=== PATIENT | male | born 1990 | race Caucasian/White ===

== ENCOUNTER 2022-03-12 08:18 | Emergency (ER) | payer MEDICAID ==
[~2022-03-12] VITALS: Ht 172.7 cm; Wt 70.0 kg
--- NOTE | 2022-03-12 09:15 | NUR ---
US tech at bedside.
[2022-03-12] MEDS ORDERED: DOXY100C43 PO (09:29)
[2022-03-12] MEDS ORDERED: CefTRIAXone 500MG IM Kit w/LIDOcaine IM ONE ×2 (09:30→09:35)
[2022-03-12 09:44] LABS: CLARITY,URINE TURBID (Clear); COLOR,URINE YELLOW (Yellow); GLUCOSE, URINE NEGATIVE (Neg); KETONES,URINE TRACE mg/dl (Neg); LEUKOCYTE ESTERASE ,URINE NEGATIVE (Neg); NITRITES, URINE NEGATIVE (Neg); OCCULT BLOOD,URINE NEGATIVE (Neg); PROTEIN,URINE NEGATIVE (Neg); UROBILINOGEN,URINE 0.2 E.U/dL (0.2-1.0)
[2022-03-12 09:52] LABS: UA COLLECTION TYPE CLN CATCH MIDSTREAM
[2022-03-12 09:53] LABS: SQUAMOUS EPITHELIAL CELL,UR FEW /LPF (FEW)
[2022-03-12 09:54] LABS: AMORPHOUS URATES 3+; SPERM FEW /HPF (NEGATIVE)
[2022-03-12 09:55] LABS: BACTERIA,URINE 1+ /HPF (Neg); RBC,URINE 0-2 /HPF (0-2); WBC,URINE 0-4 /HPF (0-4)
[2022-03-12 10:46] VITALS: BP 132/77
== END 2022-03-12 10:49 | disposition home or self-care (01) ==
LOC: ER 08:19
DX: N43.3 Hydrocele, unspecified (principal); N45.1 Epididymitis; F15.90 Other stimulant use, unspecified, uncomplicated; Z72.89 Other problems related to lifestyle; Z79.2 Long term (current) use of antibiotics
CPT/HCPCS: 76870; 81001; 93976; 96372; 99284; J0696

== ENCOUNTER 2022-03-28 08:21 | Emergency (ER) | payer MEDICAID ==
[~2022-03-28] VITALS: Ht 180.3 cm; Wt 77.3 kg
[~2022-03-28 08:21] MED LIST: DOXY100C43 PO
[2022-03-28 09:07] VITALS: BP 106/78
[2022-03-28] MEDS ORDERED: LORazepam 1 MG tablet PO ONE (09:15)
[2022-03-28 09:30] LABS: BASOPHILS # (AUTO) 0.1 X10'3 (0-0.2); BASOPHILS % (AUTO) 0.8 % (0-1); EOSINOPHILS % (AUTO) 0.2 % (0-6); HEMATOCRIT 42.3 % (42.0-52.0); LYMPHOCYTES # (AUTO) 1.2 X10'3 (1.1-4.8); LYMPHOCYTES % (AUTO) 18.5 % (21-51); MEAN CORPUSCULAR HEMOGLOBIN 31.4 PG (27.0-31.0); MEAN CORPUSCULAR HGB CONC 33.2 g/dL (33.0-36.5); MEAN CORPUSCULAR VOLUME 94.6 FL (78-98); MEAN PLATELET VOLUME 9.3 FL (7.4-10.4); MONOCYTES # (AUTO) 0.4 X10'3 (0-0.9); MONOCYTES % (AUTO) 5.5 % (2-12); NEUTROPHILS # (AUTO) 5.1 X10'3 (1.8-7.7); PLATELET COUNT 254 X10'3 (140-440); RED BLOOD COUNT 4.47 X10'6 (4.70-6.10); RED CELL DISTRIBUTION WIDTH 12.9 % (11.5-14.5); WHITE BLOOD COUNT 6.7 X10'3 (4.5-11.0)
[2022-03-28 09:39] LABS: ALANINE AMINOTRANSFERASE 18 U/L (12-78); ALBUMIN 4.7 G/DL (3.4-5.0); ALBUMIN/GLOBULIN RATIO 1.3 (1.1-1.5); ALKALINE PHOSPHATASE 51 IU/L (46-116); ANION GAP 14 (8-16); ASPARTATE AMINO TRANSFERASE 20 U/L (10-37); BILIRUBIN,TOTAL 0.3 MG/DL (0.1-1.0); BLOOD UREA NITROGEN 21 MG/DL (7-18); BUN/CREATININE RATIO 17.8 (5.4-32.0); CALCIUM 9.3 MG/DL (8.5-10.1); CHLORIDE 100 MMOL/L (99-107); CREATININE 1.18 MG/DL (0.60-1.10); GLUCOSE 63 MG/DL (70-104); POTASSIUM 4.2 MMOL/L (3.5-5.1); SODIUM 137 MMOL/L (135-145); TOTAL CARBON DIOXIDE 23.3 MMOL/L (24-32); TOTAL PROTEIN 8.3 G/DL (6.4-8.2); eGFR 72 ML/MIN
[2022-03-28 09:49] LABS: ETHANOL 0.046 GM/DL (0.0-0.010)
[2022-03-28 11:41] LABS: CLARITY,URINE CLEAR (Clear); COLOR,URINE YELLOW (Yellow); GLUCOSE, URINE NEGATIVE (Neg); KETONES,URINE 15 mg/dl (Neg); LEUKOCYTE ESTERASE ,URINE NEGATIVE (Neg); NITRITES, URINE NEGATIVE (Neg); OCCULT BLOOD,URINE NEGATIVE (Neg); PH,URINE 5.5 (4.8-8.0); PROTEIN,URINE NEGATIVE (Neg); UROBILINOGEN,URINE 0.2 E.U/dL (0.2-1.0)
[2022-03-28 11:45] LABS: URINE AMPHETAMINE SCREEN NEGATIVE (Neg); URINE BARBITUATE SCREEN NEGATIVE (Neg); URINE BENZODIAZEPINES SCREEN NEGATIVE (Neg); URINE CANNABINOID SCREEN NEGATIVE (Neg); URINE COCAINE SCREEN NEGATIVE (Neg); URINE METHADONE SCREEN NEGATIVE (Neg); URINE OPIATE SCREEN NEGATIVE (Neg); URINE PHENCYCLIDINE SCREEN NEGATIVE (Neg)
[2022-03-28 11:51] LABS: UA COLLECTION TYPE CLN CATCH MIDSTREAM
== END 2022-03-28 16:43 | disposition home or self-care (01) ==
LOC: ER 08:21
DX: R45.851 Suicidal ideations (principal); F31.9 Bipolar disorder, unspecified; F10.920 Alcohol use, unspecified with intoxication, uncomplicated; Y90.9 Presence of alcohol in blood, level not specified; Z88.8 Allergy status to other drugs, medicaments and biological substances; Z59.00 Homelessness unspecified
CPT/HCPCS: 36415; 80053; 80305; 80320; 81003; 84443; 85025; 99285

== ENCOUNTER 2022-07-12 08:24 | Emergency (ER) | payer MEDICAID ==
[~2022-07-12] VITALS: Ht 180.3 cm; Wt 70.0 kg
[2022-07-12 08:29] VITALS: BP 112/68
--- NOTE | 2022-07-12 13:22 | NUR ---
pt states he is part of a treatment program and has been taking Lorazepam 3x/day for 6 years and took his last dose this AM and has ran out of his prescription. He states his primary care provider retired without his knowing and he cant be seen by mental health doctor until July to get a new script. Pt is requesting bridge script.
== END 2022-07-12 14:42 | disposition left against medical advice (07) ==
LOC: ER 08:24
DX: Z76.0 Encounter for issue of repeat prescription (principal); F17.200 Nicotine dependence, unspecified, uncomplicated; Z59.00 Homelessness unspecified
CPT/HCPCS: 99281

== ENCOUNTER 2023-03-21 11:44 | Emergency (ER) | payer MEDICAID ==
[~2023-03-21] VITALS: Ht 180.3 cm; Wt 79.5 kg
[2023-03-21 12:02] VITALS: BP 125/80; PULSE 103; RESP 18; TEMP 97.9; O2SAT 97
[2023-03-21] MEDS ORDERED: LORazepam 1 MG tablet PO STA (15:06)
== END 2023-03-21 15:51 | disposition home or self-care (01) ==
LOC: ER 11:45
DX: F31.9 Bipolar disorder, unspecified (principal); Z59.00 Homelessness unspecified
CPT/HCPCS: 99283

== ENCOUNTER 2023-03-23 09:01 | Emergency (ER) | payer MEDICAID ==
[~2023-03-23] VITALS: Ht 175.3 cm; Wt 80.0 kg
[2023-03-23 09:22] VITALS: BP 126/89; PULSE 73; RESP 18; TEMP 97.8; O2SAT 98
[2023-03-23] MEDS ORDERED: LORazepam 1 MG tablet PO ONE (11:10)
--- NOTE | 2023-03-23 11:22 | NUR ---
PT EDUCATED TO STAY AND RECEIVE DC PAPERWORK TWICE. PT STATED "ITS AN EMERGENCY I NEED TO LEAVE" PT LEFT WITHOUT SIGNING DC PAPERWORK.
== END 2023-03-23 11:40 | disposition home or self-care (01) ==
LOC: ER 09:02
DX: F41.9 Anxiety disorder, unspecified (principal); Z59.00 Homelessness unspecified
CPT/HCPCS: 99283

== ENCOUNTER 2023-03-25 10:15 | Emergency (ER) | payer MEDICAID ==
[~2023-03-25] VITALS: Ht 175.3 cm; Wt 80.0 kg
[2023-03-25 10:22] VITALS: BP 135/80; PULSE 96; RESP 18; TEMP 97.8; O2SAT 98
[2023-03-25] MEDS ORDERED: LORA-269 PO (12:08)
== END 2023-03-25 12:19 | disposition home or self-care (01) ==
LOC: ER 10:15
DX: F41.9 Anxiety disorder, unspecified (principal); F32.A Depression, unspecified; Z79.899 Other long term (current) drug therapy; Z76.0 Encounter for issue of repeat prescription
CPT/HCPCS: 99281

== ENCOUNTER 2023-03-27 09:37 | Emergency (ER) | payer MEDICAID ==
[~2023-03-27] VITALS: Ht 177.8 cm; Wt 72.7 kg
[~2023-03-27 09:37] MED LIST changes: -DOXY100C43 PO; +LORA-269 PO
[2023-03-27 09:40] VITALS: BP 128/81; PULSE 61; RESP 18; TEMP 97.9; O2SAT 20
== END 2023-03-27 11:55 | disposition home or self-care (01) ==
LOC: ER 09:38
DX: F41.9 Anxiety disorder, unspecified (principal); Z76.0 Encounter for issue of repeat prescription; Z79.899 Other long term (current) drug therapy
CPT/HCPCS: 99281

== ENCOUNTER 2023-04-17 18:19 | Emergency (ER) | payer MEDICAID ==
[~2023-04-17] VITALS: Ht 180.3 cm; Wt 75.0 kg
[2023-04-17 18:29] VITALS: TEMP 97.2
[2023-04-17 18:38] LABS: BASOPHILS % (AUTO) 0.8 % (0-1); EOSINOPHILS % (AUTO) 0.5 % (0-6); HEMATOCRIT 40.2 % (42.0-52.0); HEMOGLOBIN 13.4 g/dl (14.0-17.9); LYMPHOCYTES % (AUTO) 32.1 % (21-51); MEAN CORPUSCULAR HEMOGLOBIN 31.1 PG (27.0-31.0); MEAN CORPUSCULAR HGB CONC 33.2 g/dL (33.0-36.5); MEAN CORPUSCULAR VOLUME 93.7 FL (78-98); MEAN PLATELET VOLUME 7.8 FL (7.4-10.4); MONOCYTES # (AUTO) 0.5 X10'3 (0-0.9); MONOCYTES % (AUTO) 7.7 % (2-12); NEUTROPHILS # (AUTO) 3.7 X10'3 (1.8-7.7); NEUTROPHILS % (AUTO) 58.9 % (42-75); PLATELET COUNT 326 X10'3 (140-440); RED BLOOD COUNT 4.29 X10'6 (4.70-6.10); RED CELL DISTRIBUTION WIDTH 14.2 % (11.5-14.5); WHITE BLOOD COUNT 6.3 X10'3 (4.5-11.0)
--- NOTE | 2023-04-17 18:38 | NUR ---
per dr tovar, cxr not needed only ekg and labs.
[2023-04-17 18:58] LABS: ALANINE AMINOTRANSFERASE 39 U/L (12-78); ALBUMIN 3.8 G/DL (3.4-5.0); ALKALINE PHOSPHATASE 83 IU/L (46-116); ANION GAP 7 (8-16); ASPARTATE AMINO TRANSFERASE 42 U/L (10-37); BILIRUBIN,TOTAL 0.3 MG/DL (0.1-1.0); BLOOD UREA NITROGEN 12 MG/DL (7-18); BUN/CREATININE RATIO 12.5 (10.0-20.0); CALCIUM 9.5 MG/DL (8.5-10.1); CHLORIDE 101 MMOL/L (99-107); CREATININE 0.96 MG/DL (0.60-1.10); GLUCOSE 104 MG/DL (70-104); POTASSIUM 4.1 MMOL/L (3.5-5.1); SODIUM 137 MMOL/L (135-145); TOTAL CARBON DIOXIDE 29.3 MMOL/L (24-32); TOTAL PROTEIN 7.8 G/DL (6.4-8.2); eCRCL 118 ML/MIN; eGFR > 90 ML/MIN
[2023-04-17 19:03] LABS: ETHANOL 148 MG/DL (<10); PRO BRAIN NATRIURETIC PEPTIDE 55 PG/ML (0-125)
[2023-04-17 19:20] VITALS: BP 118/85; PULSE 87; O2SAT 97
[2023-04-17 19:31] VITALS: RESP 19
== END 2023-04-17 20:22 | disposition home or self-care (01) ==
LOC: ER 18:20
DX: F41.9 Anxiety disorder, unspecified (principal); F17.210 Nicotine dependence, cigarettes, uncomplicated; Z79.899 Other long term (current) drug therapy
CPT/HCPCS: 36415; 71045; 80053; 80320; 83880; 84484; 85025; 93005; 99285

== ENCOUNTER 2023-04-18 14:39 | Emergency (ER) | payer MEDICAID ==
[~2023-04-18] VITALS: Ht 177.8 cm; Wt 71.4 kg
[2023-04-18 14:42] VITALS: BP 149/94; PULSE 98; RESP 16; TEMP 98.1; O2SAT 98
== END 2023-04-19 01:31 | disposition left against medical advice (07) ==
LOC: ER 14:40
DX: F41.9 Anxiety disorder, unspecified (principal); Z53.21 Procedure and treatment not carried out due to patient leaving prior to being seen by health care provider
CPT/HCPCS: 99281

== ENCOUNTER 2023-04-22 12:02 | Emergency (ER) | payer MEDICAID ==
[~2023-04-22] VITALS: Ht 177.8 cm; Wt 75.0 kg
[2023-04-22 12:18] VITALS: BP 150/80; PULSE 59; RESP 18; TEMP 97.9; O2SAT 99
[2023-04-22] MEDS ORDERED: LORazepam 1 MG tablet PO ONE (14:05)
[2023-04-23] MEDS ORDERED: HYDR-3686 PO (13:09)
== END 2023-04-22 14:48 | disposition home or self-care (01) ==
LOC: ER 12:03
DX: Z00.00 Encounter for general adult medical examination without abnormal findings (principal); Z76.0 Encounter for issue of repeat prescription; Z79.899 Other long term (current) drug therapy
CPT/HCPCS: 99283

== ENCOUNTER 2023-04-23 11:10 | Emergency (ER) | payer MEDICAID ==
[~2023-04-23] VITALS: Ht 177.8 cm; Wt 75.0 kg
[2023-04-23 11:11] VITALS: BP 129/74; PULSE 59; RESP 16; TEMP 98.6; O2SAT 99
[2023-04-23] MEDS ORDERED: HYDR-3686 PO (13:09)
== END 2023-04-23 13:44 | disposition left against medical advice (07) ==
LOC: ER 11:11
DX: F41.9 Anxiety disorder, unspecified (principal); Z76.0 Encounter for issue of repeat prescription; F32.A Depression, unspecified; Z79.899 Other long term (current) drug therapy
CPT/HCPCS: 99281

== ENCOUNTER 2023-06-12 09:47 | Emergency (ER) | payer MEDICAID | END 2023-06-12 13:56 | disposition left against medical advice (07) | LOC: ER 09:48 | DX: M79.676 Pain in unspecified toe(s) (principal); Z53.21 Procedure and treatment not carried out due to patient leaving prior to being seen by health care provider ==

== ENCOUNTER 2023-07-02 08:35 | Emergency (ER) | payer MEDICAID ==
[~2023-07-02] VITALS: Ht 177.8 cm; Wt 72.3 kg
[2023-07-02 08:54] VITALS: BP 118/78; PULSE 62; TEMP 97.8; O2SAT 100
[2023-07-02 09:44] VITALS: RESP 17
[2023-07-02] MEDS ORDERED: DOXY-1 PO (10:14)
[2023-07-02] MEDS ORDERED: NAPR-56 PO (10:14)
--- NOTE | 2023-07-02 10:15 | NUR ---
I HAVE REVIEWED AND CONCUR WITH THE GENERAL ASSESSMENT PERFORMED THIS SHIFT BY RICHMOND CARDONA LVN.
== END 2023-07-02 10:24 | disposition home or self-care (01) ==
LOC: ER 08:35
DX: S42.001A Fracture of unspecified part of right clavicle, initial encounter for closed fracture (principal); Y08.89XA Assault by other specified means, initial encounter; Y93.89 Activity, other specified; Y92.89 Other specified places as the place of occurrence of the external cause; Y99.8 Other external cause status
CPT/HCPCS: 73030; 99283; A4565

== ENCOUNTER 2023-08-04 00:10 | Emergency (ER) | payer MEDICAID ==
[~2023-08-04] VITALS: Ht 180.3 cm; Wt 75.0 kg
[2023-08-04] MEDS ORDERED: hydrOXYzine 25 MG tablet PO ONE (02:20)
[2023-08-04] MEDS ORDERED: traMADol 50MG tablet PO ONE (02:20)
[2023-08-04] MEDS ORDERED: acetaminophen 325mg tablet PO ONE (02:20)
[2023-08-04 02:42] VITALS: BP 108/62; PULSE 69; RESP 16; TEMP 97.8; O2SAT 99
== END 2023-08-04 02:44 | disposition home or self-care (01) ==
LOC: ER 00:11
DX: M25.511 Pain in right shoulder (principal); F41.9 Anxiety disorder, unspecified; R05.9 Cough, unspecified; R09.89 Other specified symptoms and signs involving the circulatory and respiratory systems; R35.0 Frequency of micturition; F32.9 Major depressive disorder, single episode, unspecified; F12.90 Cannabis use, unspecified, uncomplicated; Z72.89 Other problems related to lifestyle; Z59.00 Homelessness unspecified; Z79.899 Other long term (current) drug therapy
CPT/HCPCS: 99281

== ENCOUNTER 2023-08-04 08:21 | Emergency (ER) | payer MEDICAID ==
[~2023-08-04] VITALS: Ht 177.8 cm; Wt 73.4 kg
[2023-08-04 08:37] VITALS: BP 106/63; PULSE 57; RESP 18; TEMP 97.8; O2SAT 100
== END 2023-08-04 11:42 | disposition left against medical advice (07) ==
LOC: ER 08:23
DX: M25.511 Pain in right shoulder (principal); Z53.21 Procedure and treatment not carried out due to patient leaving prior to being seen by health care provider
CPT/HCPCS: 99281

== ENCOUNTER 2023-08-04 20:52 | Emergency (ER) | payer MEDICAID ==
[~2023-08-04] VITALS: Ht 177.8 cm; Wt 68.2 kg
[2023-08-04 20:57] VITALS: BP 138/81; PULSE 68; TEMP 97.6; O2SAT 100
[2023-08-04] MEDS ORDERED: traMADol 50MG tablet PO ONE (21:55)
[2023-08-04 22:03] VITALS: RESP 16
== END 2023-08-04 22:27 | disposition home or self-care (01) ==
LOC: ER 20:53
DX: M25.511 Pain in right shoulder (principal); F31.9 Bipolar disorder, unspecified; Z88.8 Allergy status to other drugs, medicaments and biological substances; Z79.899 Other long term (current) drug therapy; F12.10 Cannabis abuse, uncomplicated
CPT/HCPCS: 99283

== ENCOUNTER 2023-08-06 09:11 | Emergency (ER) | payer MEDICAID ==
[~2023-08-06] VITALS: Ht 177.8 cm; Wt 67.0 kg
[2023-08-06 09:14] VITALS: BP 174/102; PULSE 69; RESP 18; TEMP 97; O2SAT 98
[2023-08-06] MEDS ORDERED: LORazepam 0.5 MG tablet PO PRN (10:55)
[2023-08-06] MEDS ORDERED: LORA-268 PO (10:56)
== END 2023-08-06 11:18 | disposition home or self-care (01) ==
LOC: ER 09:11
DX: F41.9 Anxiety disorder, unspecified (principal); F32.A Depression, unspecified; Z88.8 Allergy status to other drugs, medicaments and biological substances
CPT/HCPCS: 99283

== ENCOUNTER 2023-08-10 03:04 | Emergency (ER) | payer MEDICAID ==
[~2023-08-10] VITALS: Ht 177.8 cm; Wt 75.0 kg
[~2023-08-10 03:04] MED LIST changes: +LORA-268 PO
[2023-08-10 03:11] VITALS: BP 132/64; PULSE 57; RESP 16; TEMP 98.6; O2SAT 100
== END 2023-08-10 07:10 | disposition left against medical advice (07) ==
LOC: ER 03:05
DX: M25.511 Pain in right shoulder (principal); Z53.21 Procedure and treatment not carried out due to patient leaving prior to being seen by health care provider
CPT/HCPCS: 99281

== ENCOUNTER 2023-08-19 09:21 | Emergency (ER) | payer MEDICAID ==
[~2023-08-19] VITALS: Ht 180.3 cm; Wt 74.0 kg
[2023-08-19 09:43] VITALS: BP 116/76; PULSE 68; RESP 18; TEMP 97.3; O2SAT 100
[2023-08-19] MEDS ORDERED: LORazepam 0.5 MG tablet PO PRN (10:10)
[2023-08-19] MEDS ORDERED: hydrOXYzine 25 MG tablet PO ONE (10:10)
[2023-08-19] MEDS ORDERED: HYDR-3686 PO (10:11)
== END 2023-08-19 11:10 | disposition home or self-care (01) ==
LOC: ER 09:22
DX: F41.9 Anxiety disorder, unspecified (principal); F12.90 Cannabis use, unspecified, uncomplicated; Z59.00 Homelessness unspecified; Z76.0 Encounter for issue of repeat prescription
CPT/HCPCS: 99283; Q0177

== ENCOUNTER 2023-08-21 09:55 | Emergency (ER) | payer MEDICAID ==
[~2023-08-21] VITALS: Ht 185.4 cm; Wt 81.8 kg
[~2023-08-21 09:55] MED LIST changes: +HYDR-3686 PO
[2023-08-21 10:08] VITALS: BP 118/77; PULSE 90; RESP 18; TEMP 97.8; O2SAT 98
== END 2023-08-21 13:42 | disposition left against medical advice (07) ==
LOC: ER 09:56
DX: F41.9 Anxiety disorder, unspecified (principal); F32.A Depression, unspecified; Z76.0 Encounter for issue of repeat prescription; F12.90 Cannabis use, unspecified, uncomplicated; Z59.00 Homelessness unspecified
CPT/HCPCS: 99281

== ENCOUNTER 2023-08-22 07:55 | Emergency (ER) | payer MEDICAID ==
[~2023-08-22] VITALS: Ht 177.8 cm; Wt 78.8 kg
[2023-08-22 08:19] VITALS: BP 114/76; PULSE 66; RESP 18; TEMP 97.8; O2SAT 100
== END 2023-08-22 10:31 | disposition left against medical advice (07) ==
LOC: ER 07:56
DX: F41.9 Anxiety disorder, unspecified (principal); Z76.0 Encounter for issue of repeat prescription; Z53.21 Procedure and treatment not carried out due to patient leaving prior to being seen by health care provider
CPT/HCPCS: 99281

== ENCOUNTER 2023-08-27 23:58 | Emergency (ER) | payer MEDICAID ==
[~2023-08-27] VITALS: Ht 177.8 cm; Wt 75.0 kg
[2023-08-28 02:41] VITALS: BP 134/78; PULSE 74; RESP 16; TEMP 98.1; O2SAT 98
== END 2023-08-28 02:42 | disposition home or self-care (01) ==
LOC: ER 23:59
DX: Z76.0 Encounter for issue of repeat prescription (principal); F41.9 Anxiety disorder, unspecified; F12.90 Cannabis use, unspecified, uncomplicated; Z88.8 Allergy status to other drugs, medicaments and biological substances; Z79.899 Other long term (current) drug therapy
CPT/HCPCS: 99281

== ENCOUNTER 2023-09-04 03:47 | Emergency (ER) | payer MEDICAID ==
[~2023-09-04] VITALS: Ht 180.3 cm; Wt 77.3 kg
[2023-09-04 07:18] VITALS: BP 113/74; PULSE 65; RESP 16; O2SAT 98
[2023-09-04 08:43] VITALS: TEMP 97.8
== END 2023-09-04 08:46 | disposition left against medical advice (07) ==
LOC: ER 03:48
DX: R51.9 Headache, unspecified (principal); Z53.21 Procedure and treatment not carried out due to patient leaving prior to being seen by health care provider
CPT/HCPCS: 99281

== ENCOUNTER 2023-09-05 00:12 | Emergency (ER) | payer MEDICAID ==
[~2023-09-05] VITALS: Ht 177.8 cm; Wt 75.0 kg
[2023-09-05 00:16] VITALS: BP 133/66; PULSE 67; RESP 16; TEMP 98.1; O2SAT 97
== END 2023-09-05 02:03 | disposition left against medical advice (07) ==
LOC: ER 00:13
DX: S09.8XXA Other specified injuries of head, initial encounter (principal); Z53.21 Procedure and treatment not carried out due to patient leaving prior to being seen by health care provider; X58.XXXA Exposure to other specified factors, initial encounter; Y93.89 Activity, other specified; Y92.89 Other specified places as the place of occurrence of the external cause; Y99.8 Other external cause status
CPT/HCPCS: 99281

== ENCOUNTER 2023-09-05 08:39 | Emergency (ER) | payer MEDICAID ==
[~2023-09-05] VITALS: Ht 177.8 cm; Wt 75.0 kg
[2023-09-05 08:55] VITALS: BP 126/84; PULSE 75; RESP 18; TEMP 97.8; O2SAT 98
== END 2023-09-05 12:00 | disposition left against medical advice (07) ==
LOC: ER 08:39
DX: S01.01XA Laceration without foreign body of scalp, initial encounter (principal); Z53.21 Procedure and treatment not carried out due to patient leaving prior to being seen by health care provider; X58.XXXA Exposure to other specified factors, initial encounter; Y93.89 Activity, other specified; Y92.89 Other specified places as the place of occurrence of the external cause; Y99.8 Other external cause status
CPT/HCPCS: 99281

== ENCOUNTER 2023-09-05 19:09 | Emergency (ER) | payer MEDICAID ==
[~2023-09-05] VITALS: Ht 177.8 cm; Wt 77.4 kg
[2023-09-05 19:42] VITALS: BP 138/79; PULSE 75; RESP 17; TEMP 98.5; O2SAT 100
== END 2023-09-05 20:23 | disposition left against medical advice (07) ==
LOC: ER 19:10
DX: M79.673 Pain in unspecified foot (principal); R51.9 Headache, unspecified; Z53.21 Procedure and treatment not carried out due to patient leaving prior to being seen by health care provider
CPT/HCPCS: 99281